=== PATIENT | male | born 1990 | race African-American/Black ===

== ENCOUNTER 2017-09-03 09:11 | Emergency (ER) | payer MEDICAID ==
[~2017-09-03] VITALS: Ht 182.9 cm; Wt 106.8 kg
[2017-09-03 09:27] VITALS: BP 133/76
== END 2017-09-03 10:18 | disposition home or self-care (01) ==
LOC: EMS 09:15
DX: M79.672 Pain in left foot (principal); J02.9 Acute pharyngitis, unspecified
CPT/HCPCS: 99281